=== PATIENT | female | born 1935 | race Caucasian/White ===

== ENCOUNTER → 2016-07-14 | Outpatient (CLI) | payer BC ==
[~2016-07-14] MED LIST: ALPR-412 PO; ASPEC81 PO; BNC/40 PO; CHOL20009 PO; ESTR0.3T PO; FLNIN NAE; LORA10CA2 PO; OMEG1CAP81 PO; PROG100C6 PO; SIMV20TA2 PO
[2016-07-14 10:11] LABS: ALT/SGPT 30 U/L (12-78); AST/SGOT 19 U/L (15-37); BLOOD UREA NITROGEN 19 mg/dl (7-18); BUN/CREATININE RATIO 17.1 (10-20); CARBON DIOXIDE 28 mmol/L (21-32); CHLORIDE 106 mmol/L (98-107); GLUCOSE 123 mg/dl (70-99); POTASSIUM 4.2 mmol/L (3.5-5.1); SODIUM 141 mmol/L (136-145)
[2016-07-14 10:21] LABS: CHOLESTEROL 167 mg/dl (0-200); HDL CHOLESTEROL 55 mg/dl; LDL CHOLESTEROL CALCULATED 84 mg/dl; TRIGLYCERIDES 140 mg/dl (0-150); VERY LOW DENSITY LIPOPROT CALC 28 mg/dl
== END | disposition home or self-care (01) ==
LOC: C.LAB1850 07:08
PROVIDERS: ATTEND Internal Medicine
DX: E78.5 Hyperlipidemia, unspecified (principal); I10 Essential (primary) hypertension; E55.9 Vitamin D deficiency, unspecified; E04.1 Nontoxic single thyroid nodule

== ENCOUNTER → 2017-01-12 | Outpatient (CLI) | payer BC ==
[2017-01-12 10:00] LABS: BLOOD UREA NITROGEN 20 mg/dl (7-18); BUN/CREATININE RATIO 16.3 (10-20); CALCIUM 9.1 mg/dl (8.5-10.1); CARBON DIOXIDE 25 mmol/L (21-32); CHLORIDE 106 mmol/L (98-107); GLUCOSE 137 mg/dl (70-99); POTASSIUM 4.5 mmol/L (3.5-5.1); SODIUM 139 mmol/L (136-145)
== END | disposition home or self-care (01) ==
LOC: C.LAB1850 07:41
PROVIDERS: ATTEND Internal Medicine
DX: R73.9 Hyperglycemia, unspecified (principal)

== ENCOUNTER 2022-05-08 15:54 | Observation (INO) ==
[2022-05-08 16:50] LABS: Basophils # (auto) 0.03 K/uL (0-0.2); Basophils % (auto) 0.3 %; Eosinophils % (auto) 0.9 %; Hematocrit (blood only) 26.7 % (37.0-47.0); Immature Granulocytes # (auto) 0.12 K/uL (0.01-0.20); Immature Granulocytes % (auto) 1.1 %; Lymphocytes # (auto) 0.82 K/uL (1.2-3.4); Lymphocytes % (auto) 7.4 %; Mean Corpuscular Hemoglobin 26.9 pg (25.0-34.0); Mean Corpuscular Hgb Conc 33.7 g/dL (32.0-36.0); Mean Corpuscular Volume 79.7 fL (80.0-100.0); Mean Platelet Volume 10.4 fL (9.4-12.4); Monocytes # (auto) 1.39 K/uL (0.11-0.59); Monocytes % (auto) 12.6 %; Neutrophils # (auto) 8.61 K/uL (1.40-6.50); Neutrophils % (auto) 77.7 %; Platelet Count 304 K/uL (130-400); RDW Coefficient of Variation 14.6 % (11.5-14.5); RDW Standard Deviation 42.6 fL (36.4-46.3); Red Blood Count 3.35 M/uL (4.20-5.40); White Blood Count 11.07 K/ul (4.8-10.8)
[2022-05-08 17:13] LABS: Albumin Globulin Ratio 0.9 (0.9-2); Albumin Level 3.3 gm/dl (3.4-5.0); Bilirubin,Total 4.2 mg/dl (0.2-1.0); Calcium 8.9 mg/dl (8.5-10.1); Creatinine Clr Calc Pharmacy 51.9 ml/min; Est GFR (African American) 79.7 ml/min; Est GFR (Non-African American) 68.7 ml/min; Globulin 3.5 gm/dl (2.5-4.0); Potassium 4.1 mmol/L (3.5-5.1); Total Protein 6.8 gm/dl (6.0-8.3)
[2022-05-08] MEDS ORDERED: PIPERACILLIN/TAZOBACTAM 4.5 GM/120 ML BAG IV ONE (18:30)
[2022-05-08] MEDS ORDERED: CHOLESTYRAMINE LIGHT 4 GM PKT PO STA (18:47)
[2022-05-08] MEDS ORDERED: diphenhydrAMINE 50 MG/ML VIAL IV STA (18:47)
--- NOTE | 2022-05-08 18:47 | Emergency Department Note ---
Impression & Plan Acute cholangitis, Hyperbilirubinemia, Fever ED Provider Note INFORMANT: Patient and daughter ED PROVIDER(S): Joshua Childers DO CHIEF COMPLAINT: Itchiness, jaundice fever PLAN: Disposition: Transfer Condition: Stable Outpatient prescription management: none Referral: [facility] MEDICAL DECISION MAKING: This is a 86-year-old female who presents to the ED with a chief complaint of itchiness and increased jaundice. She first was noticed to be a little more yellow last week according to the family. She has some laboratory test yesterday that showed her bilirubin is 1.2. Her skin became significantly more itchy today. Daughter also reports that she had a fever of 100.3 earlier today. Advil helped. The patient took cholestyramine earlier today for her itchiness. She states that transiently helped. The patient's white blood cell count is 11. It was 9 yesterday. Hemoglobin is relatively stable at 9. Glucose is 288. She does have a history of hyperglycemia. Sodium is 130. Slightly low. She does have a transaminitis with an AST of 80, ALT of 113 and alkaline phosphatase of 422. This is near baseline with exception of the alkaline phosphatase being slightly higher than baseline. Lipase was negative. EKG showed normal sinus rhythm. Bilirubin is 4.2 today. Yesterday was 1.2. I did speak with [facility], Dr. Marion as well as Dr. Buckley from the medicine service. They will accept the patient to the medicine service once a bed is available. They are going to put the patient on a waiting list. They recommend the patient be admitted here until a bed is available there. They also recommended blood cultures and Zosyn IV. I did speak with Dr. Navarrete from the medicine service here. He will consult on the patient for now to assist in care pending transfer. Triage Nursing notes reviewed. Vital Signs: reviewed Prior /Outside records reviewed: Previous labs reviewed Differential diagnosis: Cholangitis, jaundice, electrolyte abnormality, sepsis, infection, other. Diagnostics, as interpreted by me: 12 lead ECG: Normal sinus rhythm rate of 100 with a left bundle branch block. This is chronic compared to an EKG dated 11/09/2021. No ST elevation. No PVCs. Normal QTC. Cardiac Monitoring: none Medical decision rules: none Imaging studies: Chest x-ray: Elevated left hemidiaphragm with atelectasis. Procedures: none. Critical care: none. HPI: See MDM above. PAST MEDICAL HISTORY: See Below PAST SURGICAL HISTORY: See Below SOCIAL HISTORY: See Below HOME MEDICATIONS: See Below ALLERGIES: See Below VITALS: See Below PHYSICAL EXAMINATION: CONSTITUTIONAL/VITAL SIGNS: Reviewed GENERAL: Non-toxic in appearance. INTEGUMENTARY: Warm, dry, and [place]. HEAD: Normocephalic. EYES: without scleral icterus. ENT/OROPHARYNX: clear and moist. RESPIRATORY: No increased work of breathing. Lungs clear. CARDIOVASCULAR: Regular rate. Regular rhythm. GI/ABDOMEN: Soft and nontender. . EXTREMITIES: Normal NEUROLOGICAL: Intact without focal deficits. PSYCHIATRIC: Normal affect. MUSCULOSKELETAL: Normal. TRIAGE NURSING DOCUMENTATION REVIEWED. Past Med/Surg History Medical History (Updated 05/08/22 @ 19:07 by Darnell Navarrete MD) Anxiety disorder Hyperglycemia Hyperlipidemia Hypertension Hypothyroidism Osteoporosis Solitary thyroid nodule Vitamin D deficiency Yellow skin Surgical History (Updated 11/26/21 @ 11:36 by Roberto Davis LPN) H/O dilation and curettage H/O oral surgery S/P ERCP Family History Brother Prostate cancer Mother Myocardial infarction Dementia Sister Epilepsia Denies family history of Ovarian cancer Breast cancer Lung cancer Colorectal cancer Stroke Social History Smoking Status: Never smoker Second Hand Exposure: No; Hx Alcohol Use: No Hx Substance Use: No Preferred Language: Spanish Visual Impairment: No Limitations Hearing Ability: Normal Beliefs That Will Affect Care: None marital status: / Current Living Situation: Alone current occupational status: retired Feels Safe at Home: Yes Childhood Exposure to Second-Hand Smoke: No caffeine: No Dental Care, Regularly: Yes Physical Activity Frequency: 5-6 Times per Week Seatbelt Use: always Sunscreen Use: Yes Allergies Allergies Allergy/AdvReac Type Severity Reaction Status Date / Time sertraline Allergy Unknown UNKNOWN Verified 11/10/21 14:19 Home Meds Home Medications Medication Instructions Recorded Confirmed cholecalciferol (vitamin D3) 50 2,000 units PO DAILY 10/10/18 05/08/22 mcg (2,000 unit) tablet omega-3 acid ethyl esters 1 gram 1 cap PO DAILY 02/19/19 05/08/22 capsule apixaban 5 mg tablet (Eliquis) 5 mg PO BID 05/08/22 05/08/22 capecitabine 500 mg tablet 500 mg PO UD 05/08/22 05/08/22 cholestyramine (with sugar) 4 gram 4 g PO BID 05/08/22 05/08/22 oral powder ondansetron HCl 8 mg tablet 8 mg PO Q8 PRN Nausea 05/08/22 05/08/22 pantoprazole 40 mg tablet,delayed 40 mg PO DAILY 05/08/22 05/08/22 release prochlorperazine maleate 10 mg 10 mg PO Q6 PRN Nausea 05/08/22 05/08/22 tablet simvastatin 40 mg tablet 20 mg PO QPM 05/08/22 05/08/22 Previous Rx's Medication Instructions Recorded olmesartan 40 mg tablet 40 mg PO DAILY #90 tabs 08/14/21 duloxetine 60 mg capsule,delayed 60 mg PO DAILY #90 caps 11/04/21 release levothyroxine 50 mcg tablet 50 mcg PO DAILY #90 tabs 12/16/21 alprazolam 0.25 mg tablet 0.25 mg PO BID PRN anxiety #60 tabs 01/27/22 Results & Data (ED) Vital Signs Vital Signs - 24 hr 05/08/22 16:13 05/08/22 18:22 Temperature 37.0 C Temperature Source Oral Pulse Rate 102 H Pulse Rate [Finger] 86 Pulse Rhythm [Finger] Regular Pulse Strength [Finger] Normal Respiratory Rate 18 20 Respiratory Effort / Characteristics Non-Labored Spontaneous Non-Labored Spontaneous Respiratory Depth Normal Normal Respiratory Pattern Regular Regular Blood Pressure 148/66 H Blood Pressure [Right Arm] 142/58 H Blood Pressure Mean 93 Blood Pressure Mean [Right Arm] 86 Blood Pressure Position Sitting Pulse Oximetry 93 97 Oxygen Delivery Method Room Air Room Air Sepsis Recent Fever Within 48 Hours No Sepsis New/Unexplained Change in Mental Status N/A Sepsis Action Taken by Nursing No Action Required Laboratory Data 05/08/22 16:24 05/08/22 16:24 Lab Results 05/08/22 05/08/22 05/08/22 Range/Units 16:24 16:24 19:03 WBC 11.07 H (4.8-10.8) K/ul RBC 3.35 L (4.20-5.40) M/uL Hgb 9.0 L (12.0-16.0) g/dl Hct 26.7 L (37.0-47.0) % MCV 79.7 L D (80.0-100.0) fL MCH 26.9 (25.0-34.0) pg MCHC 33.7 (32.0-36.0) g/dL RDW Std Deviation 42.6 (36.4-46.3) fL RDW Coeff of Jeevan 14.6 H (11.5-14.5) % Plt Count 304 (130-400) K/uL MPV 10.4 (9.4-12.4) fL Immature Gran % (Auto) 1.1 % Neut % (Auto) 77.7 % Lymph % (Auto) 7.4 % [place] % (Auto) 12.6 % Eos % (Auto) 0.9 % Baso % (Auto) 0.3 % Neut # (Auto) 8.61 H (1.40-6.50) K/uL Lymph # (Auto) 0.82 L (1.2-3.4) K/uL [place] # (Auto) 1.39 H (0.11-0.59) K/uL Eos # (Auto) 0.10 (0-0.50) K/uL Baso # (Auto) 0.03 (0-0.2) K/uL Immature Gran # (Auto) 0.12 (0.01-0.20) K/uL Sodium 130 L (136-145) mmol/L Potassium 4.1 (3.5-5.1) mmol/L Chloride 99 (98-107) mmol/L Carbon Dioxide 24 (21-32) mmol/L Anion Gap 7 (3-11) BUN 15 (6-23) mg/dl Creatinine 0.79 (0.6-1.2) mg/dl Est Cr Clr Drug Dosing 51.9 ml/min Est GFR ( Amer) 79.7 ml/min Est GFR (Non-Af Amer) 68.7 ml/min BUN/Creatinine Ratio 19.0 (10-20) Glucose 288 H (70-99(Fasting)) mg/dl Calcium 8.9 (8.5-10.1) mg/dl Total Bilirubin 4.2 H D (0.2-1.0) mg/dl AST 80 H (13-39) U/L ALT 113 H (7-52) U/L Alkaline Phosphatase 422 H (34-104) U/L Total Protein 6.8 (6.0-8.3) gm/dl Albumin 3.3 L (3.4-5.0) gm/dl Globulin 3.5 (2.5-4.0) gm/dl Albumin/Globulin Ratio 0.9 (0.9-2) Lipase 62 (11-82) U/L SARS-CoV-2, RNA, NAAT NEGATIVE (NEGATIVE) Administered Medications Discontinued Medications Piperacillin Sod/Tazobactam Sod (Zosyn) 4.5 gm in 120 mls @ 240 mls/hr IV NOW ONE Stop: 05/08/22 18:59 Last Infusion: 05/08/22 19:21 Dose: 0 mls/hr Documented By: Admin: 05/08/22 18:44 Dose: 240 mls/hr Documented By: [id number] Discharge Plan Visit Data Chief Complaint: GI Assessment Stated Complaint: STENT POSSIBLY BLOCKED, FEVERISH ED Provider: Joshua Childers Discharge Problem: Acute cholangitis, Hyperbilirubinemia, Fever Forms Stand Alone Forms: My [facility] [facility] Prescriptions Prescriptions: No Action olmesartan 40 mg tablet 40 mg PO DAILY Qty: 90 3RF duloxetine 60 mg capsule,delayed release(DR/EC) 60 mg PO DAILY Qty: 90 3RF levothyroxine 50 mcg tablet 50 mcg PO DAILY Qty: 90 3RF alprazolam 0.25 mg tablet 0.25 mg PO BID PRN (Reason: anxiety) Qty: 60 0RF cholecalciferol (vitamin D3) 2,000 unit tablet 2,000 units PO DAILY omega-3 acid ethyl esters 1 gram capsule 1 cap PO DAILY ondansetron HCl 8 mg tablet 8 mg PO Q8 PRN (Reason: Nausea) prochlorperazine maleate 10 mg tablet 10 mg PO Q6 PRN (Reason: Nausea) pantoprazole 40 mg tablet,delayed release (DR/EC) 40 mg PO DAILY Eliquis 5 mg tablet 5 mg PO BID simvastatin 40 mg tablet 20 mg PO QPM Rx Instructions: 20 mg PO TAKE ONE HALF TABLET EVERY EVENING; capecitabine 500 mg tablet 500 mg PO UD cholestyramine (with sugar) 4 gram Powder 4 g PO BID Rx Instructions: 3 days prescribed today administer w/meal; avoid other meds within 1hr before or 4-6hr after dose Referrals Referrals: Alba Khalil MD [Primary Care Provider] -
--- NOTE | 2022-05-08 18:51 | Hospitalist Consultation ---
Date of Consultation May 08, 2022 Assessment & Plan (1) Acute cholangitis: Secondary to stent duodenal ampulla adenocarcinoma Planning on starting chemotherapy on Tuesday (2) Hypothyroidism: (3) Hypertension: (4) Hyperlipidemia: (5) Anxiety disorder: (6) History of DVT (deep vein thrombosis): Diagnosed 1 week ago. Last took Eliquis at 9:30am. History of Present Illness History of Present Illness Alessia London is an 86 year old female who presents to the ER with . Itching, skin turning yellow. Dr Mark did LFTs on progressive over last week. Abdominal pain- had one day, severity 5/10, last half a day, occurred on Tuesday. Improve after Boost and heating pad. Aching all over today, 100.3 temp 2pm. Took two Advil. Sweating. Tuesday. Talked to Dr Mark and prescribed cholestyramine. Called [facility] and as long as level - Original stent placed in November. May Allergies Allergy/AdvReac Type Severity Reaction Status Date / Time sertraline Allergy Unknown UNKNOWN Verified 11/10/21 14:19 Home Medications Medication Instructions Recorded Confirmed Type cholecalciferol (vitamin D3) 50 2,000 units PO DAILY 10/10/18 05/08/22 History mcg (2,000 unit) tablet omega-3 acid ethyl esters 1 gram 1 cap PO DAILY 02/19/19 05/08/22 History capsule olmesartan 40 mg tablet 40 mg PO DAILY #90 tabs 08/14/21 05/08/22 Rx duloxetine 60 mg capsule,delayed 60 mg PO DAILY #90 caps 11/04/21 05/08/22 Rx release levothyroxine 50 mcg tablet 50 mcg PO DAILY #90 tabs 12/16/21 05/08/22 Rx alprazolam 0.25 mg tablet 0.25 mg PO BID PRN anxiety #60 tabs 01/27/22 05/08/22 Rx apixaban 5 mg tablet (Eliquis) 5 mg PO BID 05/08/22 05/08/22 History capecitabine 500 mg tablet 500 mg PO UD 05/08/22 05/08/22 History cholestyramine (with sugar) 4 gram 4 g PO BID 05/08/22 05/08/22 History oral powder ondansetron HCl 8 mg tablet 8 mg PO Q8 PRN Nausea 05/08/22 05/08/22 History pantoprazole 40 mg tablet,delayed 40 mg PO DAILY 05/08/22 05/08/22 History release prochlorperazine maleate 10 mg 10 mg PO Q6 PRN Nausea 05/08/22 05/08/22 History tablet simvastatin 40 mg tablet 20 mg PO QPM 05/08/22 05/08/22 History Patient History Medical History (Updated 05/08/22 @ 19:07 by Darnell Navarrete MD) Anxiety disorder Hyperglycemia Hyperlipidemia Hypertension Hypothyroidism Osteoporosis Solitary thyroid nodule Vitamin D deficiency Yellow skin Surgical History (Updated 11/26/21 @ 11:36 by Roberto Davis LPN) H/O dilation and curettage H/O oral surgery S/P ERCP Family History Brother Prostate cancer Mother Myocardial infarction Dementia Sister Epilepsia Denies family history of Ovarian cancer Breast cancer Lung cancer Colorectal cancer Stroke Social History Smoking Status: Never smoker Second Hand Exposure: No; Hx Alcohol Use: No Hx Substance Use: No Preferred Language: Egyptian Visual Impairment: No Limitations Hearing Ability: Normal Beliefs That Will Affect Care: None marital status: / Current Living Situation: Alone current occupational status: retired Feels Safe at Home: Yes Childhood Exposure to Second-Hand Smoke: No caffeine: No Dental Care, Regularly: Yes Physical Activity Frequency: 5-6 Times per Week Seatbelt Use: always Sunscreen Use: Yes Results & Data Results & Data ([facility]) Vital Signs (Past 12 Hours) Vital Signs Temp Pulse Pulse Resp BP BP Pulse Ox 05/08/22 18:22 86 20 142/58 H 97 05/08/22 16:13 37.0 C 102 H 18 148/66 H 93 O2 Del Method 05/08/22 18:22 Room Air 05/08/22 16:13 Room Air PG Care Time/CCT Total # of Minutes Spent Total Time Spent with Patient: Total time spent is greater than 50% in coordination of care (as documented) at patient's floor/unit and/or counseling patient: Coding Diagnoses Acute cholangitis K83.09 Hypothyroidism E03.9 Hypertension I10 Hyperlipidemia E78.5 Anxiety disorder F41.9 History of DVT (deep vein thrombosis) Z86.181
--- NOTE | 2022-05-08 19:42 | XRay Report ---
XR chest 1V portable HISTORY: jaundice COMPARISON: PET CT 05/05/2022. FINDINGS: No pneumothorax. No pleural effusions. Left basilar linear densities favor subsegmental ate lectasis. Otherwise, the lungs are clear. The cardiac silhouette is borderline enlarged. No evidence for pulmonary edema. IMPRESSION: No acute process. ACT 112: Negative or not required by law. Electronically signed by: Fernando Larios M.D. 05/08/2022 7:41 PM
--- NOTE | 2022-05-08 20:11 | History & Physical Report ---
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 No need to repeat. Continue levothyroxine 50 mcg PO daily (4) Hypertension: Plan: Continue olmesartan 40 mg p.o. daily (5) Hyperlipidemia: Plan: Continue simvastatin p.o. daily (6) Anxiety disorder: Plan: Continue Xanax 0.25 mg p.o. twice daily Continue duloxetine 60 mg p.o. daily (7) History of DVT (deep vein thrombosis): Plan: Diagnosed 1 week ago. Last took Eliquis at 9:30am. 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 She reports progressive symptoms of itching and yellowing of skin over the last week. Yesterday she had half a day of abdominal pain, severity 5/10 at worse, improved after she drank a boost and used a heating pad. Given symptoms repeat [facility] with bilirubin 1.2, AST 88, ALT 119. She was advised to call [facility] gastro[facility]ology and advised the would not perform ERCP until her bilirubin was greater than 1.5. Today she was aching all over and had a temperature of 100.3 degrees Farenheit therefore her daughter convinced her to come to the ER. In the ER bilirubin now elevated to 4.2. Her case was discussed with [facility] by the ER provider and she has been accepted for transfer but no bed is currently available therefore recommended admission under medicine for medical care here until a bed becomes available. Allergies Allergy/AdvReac Type Severity Reaction Status Date / Time sertraline Allergy Unknown UNKNOWN Verified 11/10/21 14:19 Home Medications Medication Instructions Recorded Confirmed Type cholecalciferol (vitamin D3) 50 2,000 units PO DAILY 10/10/18 05/08/22 History mcg (2,000 unit) tablet omega-3 acid ethyl esters 1 gram 1 cap PO DAILY 02/19/19 05/08/22 History capsule olmesartan 40 mg tablet 40 mg PO DAILY #90 tabs 08/14/21 05/08/22 Rx duloxetine 60 mg capsule,delayed 60 mg PO DAILY #90 caps 11/04/21 05/08/22 Rx release levothyroxine 50 mcg tablet 50 mcg PO DAILY #90 tabs 12/16/21 05/08/22 Rx alprazolam 0.25 mg tablet 0.25 mg PO BID PRN anxiety #60 tabs 01/27/22 05/08/22 Rx apixaban 5 mg tablet (Eliquis) 5 mg PO BID 05/08/22 05/08/22 History capecitabine 500 mg tablet 500 mg PO UD 05/08/22 05/08/22 History cholestyramine (with sugar) 4 gram 4 g PO BID 05/08/22 05/08/22 History oral powder ondansetron HCl 8 mg tablet 8 mg PO Q8 PRN Nausea 05/08/22 05/08/22 History pantoprazole 40 mg tablet,delayed 40 mg PO DAILY 05/08/22 05/08/22 History release prochlorperazine maleate 10 mg 10 mg PO Q6 PRN Nausea 05/08/22 05/08/22 History tablet simvastatin 40 mg tablet 20 mg PO QPM 05/08/22 05/08/22 History Past Med/Surg History Medical History (Updated 05/09/22 @ 02:05 by Darnell Navarrete MD) Anxiety disorder Hyperglycemia Hyperlipidemia Hypertension Hypothyroidism Osteoporosis Solitary thyroid nodule Vitamin D deficiency Yellow skin Surgical History (Updated 11/26/21 @ 11:36 by Roberto Davis LPN) H/O dilation and curettage H/O oral surgery S/P ERCP Family History Brother Prostate cancer Mother Myocardial infarction Dementia Sister Epilepsia Denies family history of Ovarian cancer Breast cancer Lung cancer Colorectal cancer Stroke Social History Smoking Status: Never smoker Second Hand Exposure: No; Hx Alcohol Use: No Hx Substance Use: No Preferred Language: Cymro Communication Ability: Effective Visual Impairment: No Limitations Hearing Ability: Normal Gift Packer Required: No Beliefs That Will Affect Care: None marital status: / Current Living Situation: Alone current occupational status: retired Other Information That Helps Us Care for You: No Feels Safe at Home: Yes Safety Concerns: Feels Safe At This Time Childhood Exposure to Second-Hand Smoke: No caffeine: No Dental Care, Regularly: Yes Physical Activity Frequency: 5-6 Times per Week Seatbelt Use: always Sunscreen Use: Yes Assistive Devices: Denture - Upper, Denture - Lower, Hearing Aid - Left and Hearing Aid - Right Review of Systems Review of Systems: All systems reviewed & are unremarkable except as noted in HPI & below Physical Exam Constitutional: well developed and well nourished; no acute distress Eyes: sclerae not anicteric ENMT: external ear and nose normal, oropharynx normal Neck: trachea midline, no thyromegaly Respiratory: normal respiratory effort, lungs clear to auscultation Cardiovascular: Rate/Rhythm: regular rate and regular rhythm Heart Sounds: no murmur Extremities: normal capillary refill and + pedal edema (1+ b/l equal edema); no calf tenderness Gastrointestinal (Abdomen): normal bowel sounds, soft, nontender, no hepatosplenomegaly Musculoskeletal: no cyanosis or clubbing, extremities motor strength 5/5 Skin: + jaundice Neurologic: moves all extremities and awake; not confused Psychiatric: A+Ox3, euthymic affect Genitourinary: no CVA tenderness Results & Data Results & Data ([facility]) Vital Signs (Past 12 Hours) Vital Signs Temp Pulse Pulse Resp BP BP Pulse Ox 05/08/22 19:30 86 16 153/80 H 92 05/08/22 18:22 86 20 142/58 H 97 05/08/22 16:13 37.0 C 102 H 18 148/66 H 93 O2 Del Method 05/08/22 19:30 Room Air 05/08/22 18:22 Room Air 05/08/22 16:13 Room Air Laboratory Results Abnormal lab results 05/08/22 05/08/22 Range/Units 16:24 16:24 WBC 11.07 H (4.8-10.8) K/ul RBC 3.35 L (4.20-5.40) M/uL Hgb 9.0 L (12.0-16.0) g/dl Hct 26.7 L (37.0-47.0) % MCV 79.7 L D (80.0-100.0) fL RDW Coeff of Jeevan 14.6 H (11.5-14.5) % Neut # (Auto) 8.61 H (1.40-6.50) K/uL Lymph # (Auto) 0.82 L (1.2-3.4) K/uL [place] # (Auto) 1.39 H (0.11-0.59) K/uL Sodium 130 L (136-145) mmol/L Glucose 288 H (70-99(Fasting)) mg/dl Total Bilirubin 4.2 H D (0.2-1.0) mg/dl AST 80 H (13-39) U/L ALT 113 H (7-52) U/L Alkaline Phosphatase 422 H (34-104) U/L Albumin 3.3 L (3.4-5.0) gm/dl Medications Administered ER Medications Given: Zosyn 4.5 g IV Cholestyramine 4 g PO Diphenhydramine 25 mg IV ECG Indication: abdominal pain Rate (beats per minute): 100 Rhythm: normal sinus Findings: + LBBB Comparison ECG Date: from (November 09, 2020) Change: the following changes noted (TWI less evident in lateral leads) Code Status & VTE Plan Code Status Full VTE Prophylaxis Plan VTE Prophylaxis will be ordered: Yes PG Care Time/CCT Total # of Minutes Spent Total Time Spent with Patient: Total time spent is greater than 50% in coordination of care (as documented) at patient's floor/unit and/or counseling patient: Coding Level of Care Code 28093 INT INP/OBS CARE 3/75MIN Diagnoses Acute cholangitis K83.09 Metastatic adenocarcinoma C79.9 Hypothyroidism E03.9 Hypertension I10 Hyperlipidemia E78.5 Anxiety disorder F41.9 History of DVT (deep vein thrombosis) Z86.718
[2022-05-08] MEDS ORDERED: ONDANSETRON INJ 2 MG/ML 2 ML VIAL IV PRN (21:04)
[2022-05-08] MEDS ORDERED: SIMVASTATIN 20 MG TAB PO SCH (21:04)
[2022-05-08] MEDS: ENOXAPARIN 80 MG/0.8 ML SYR SQ SCH (22:40)
[2022-05-08] MEDS: CHOLESTYRAMINE LIGHT 4 GM PKT PO SCH (22:40)
[2022-05-08] MEDS: ALPRAZolam 0.25 MG TABLET PO SCH (22:40)
[2022-05-08] MEDS: PIPERACILLIN/TAZOBACTAM 3.375 GM in DEXTROSE 5% 100 ML IV SCH (22:41)
[2022-05-09] MEDS: SODIUM CHLORIDE 0.9% 1000ML 1,000 ML IV SCH ×2 (03:07→10:30)
[2022-05-09] MEDS: PIPERACILLIN/TAZOBACTAM 3.375 GM in DEXTROSE 5% 100 ML IV SCH ×2 (05:51→13:39)
[2022-05-09] MEDS ORDERED: LEVOTHYROXINE SODIUM 50 MCG TABLET PO SCH (06:30)
[2022-05-09 07:23] LABS: Basophils # (auto) 0.05 K/uL (0-0.2); Basophils % (auto) 0.6 %; Eosinophils # (auto) 0.76 K/uL (0-0.50); Eosinophils % (auto) 8.4 %; Hematocrit (blood only) 25.6 % (37.0-47.0); Hemoglobin 8.4 g/dl (12.0-16.0); Immature Granulocytes # (auto) 0.06 K/uL (0.01-0.20); Immature Granulocytes % (auto) 0.7 %; Lymphocytes # (auto) 2.09 K/uL (1.2-3.4); Lymphocytes % (auto) 23.2 %; Mean Corpuscular Hemoglobin 26.8 pg (25.0-34.0); Mean Corpuscular Hgb Conc 32.8 g/dL (32.0-36.0); Mean Corpuscular Volume 81.5 fL (80.0-100.0); Mean Platelet Volume 10.3 fL (9.4-12.4); Monocytes # (auto) 1.27 K/uL (0.11-0.59); Monocytes % (auto) 14.1 %; Neutrophils # (auto) 4.77 K/uL (1.40-6.50); Platelet Count 318 K/uL (130-400); RDW Coefficient of Variation 14.6 % (11.5-14.5); RDW Standard Deviation 43.1 fL (36.4-46.3); Red Blood Count 3.14 M/uL (4.20-5.40)
--- NOTE | 2022-05-09 07:33 | Electrocardiogram Report ---
Test Reason : Blood Pressure : / mmHG Vent. Rate : 100 BPM Atrial Rate : 100 BPM P-R Int : 132 ms QRS Dur : 126 ms QT Int : 368 ms P-R-T Axes : 042 009 130 degrees QTc Int : 474 ms Normal sinus rhythm Left bundle branch block Abnormal ECG When compared with ECG of 09-NOV-2020 15:22, T wave inversion less evident in Lateral leads Confirmed by Demetrius Peterson ([id number]) on 05/09/2022 7:33:15 AM Referred By: Antionette Mark Confirmed By:Jose Daniel Peterson
[2022-05-09 08:19] LABS: Albumin Globulin Ratio 0.9 (0.9-2); BUN Creatinine Ratio 16.3 (10-20); Bilirubin,Total 3.9 mg/dl (0.2-1.0); Calcium 9.1 mg/dl (8.5-10.1); Creatinine Clr Calc Pharmacy 51.3 ml/min; Est GFR (African American) 78.5 ml/min; Est GFR (Non-African American) 67.7 ml/min; Globulin 3.3 gm/dl (2.5-4.0); Potassium 4.1 mmol/L (3.5-5.1); Total Protein 6.3 gm/dl (6.0-8.3)
[2022-05-09] MEDS: ALPRAZolam 0.25 MG TABLET PO SCH (08:46)
[2022-05-09] MEDS: ENOXAPARIN 80 MG/0.8 ML SYR SQ SCH (08:52)
[2022-05-09] MEDS ORDERED: OLMESARTAN MEDOXOMIL 40 MG TAB PO SCH (09:00)
[2022-05-09] MEDS ORDERED: DULoxetine HCL 60 MG CAP PO SCH (09:00)
[2022-05-09] MEDS: CHOLESTYRAMINE LIGHT 4 GM PKT PO SCH (10:27)
[2022-05-09] MEDS ORDERED: PANTOprazole 40 MG in SYRINGE 0 ML IV SCH (11:00)
--- NOTE | 2022-05-09 13:43 | Communication Note ---
Date of Service: May 09, 2022 Date of Service: May 09, 2022 I briefly saw Alessia London today at her bedside. Her daughter was present as well. She has a history of an Ampullary cancer and has previously undergone an ERCP with biliary stent placement in November. She has also undergone a cholecystectomy since that time. She states that she was to have a biliary stent removal/exchange at [facility] in May as this is where all of her previous procedures have been done, however, she developed fever and pruritus and presented to the ER. She was noted to have elevated LFT's and probable cholangitis. She was admitted and received IV Abx, and is feeling much better. She has been accepted in transfer to [facility], but is currently awaiting a bed. She does not have any emergent need for ERCP at this time. I discussed with the hospitalist team, and formal consultation was cancelled. I am available if any further questions arise. Thanks.
--- NOTE | 2022-05-09 13:51 | Discharge Summary ---
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 She reports progressive symptoms of itching and yellowing of skin over the last week. Yesterday she had half a day of abdominal pain, severity 5/10 at worse, improved after she drank a boost and used a heating pad. Given symptoms repeat [facility] with bilirubin 1.2, AST 88, ALT 119. She was advised to call [facility] and advised the would not perform ERCP until her bilirubin was greater than 1.5. Today she was aching all over and had a temperature of 100.3 degrees Farenheit therefore her daughter convinced her to come to the ER. In the ER bilirubin now elevated to 4.2. Her case was discussed with [facility] by the ER provider and she has been accepted for transfer but no bed is currently available therefore recommended admission under medicine for medical care here until a bed becomes available. Admission Exam Per Admitting Provider Constitutional: well developed and well nourished; no acute distress Eyes: sclerae not anicteric ENMT: external ear and nose normal, oropharynx normal Neck: trachea midline, no thyromegaly Respiratory: normal respiratory effort, lungs clear to auscultation Cardiovascular: Rate/Rhythm: regular rate and regular rhythm Heart Sounds: no murmur Extremities: normal capillary refill and + pedal edema (1+ b/l equal edema); no calf tenderness Gastrointestinal (Abdomen): normal bowel sounds, soft, nontender, no hepatosplenomegaly Musculoskeletal: no cyanosis or clubbing, extremities motor strength 5/5 Skin: + jaundice Neurologic: moves all extremities and awake; not confused Psychiatric: A+Ox3, euthymic affect Genitourinary: no CVA tenderness Principal Diagnosis cholangitis Discharge Exam Constitutional well developed, well nourished, + ill appearing and + well hydrated Eyes icterus Neck trachea midline, no thyromegaly Respiratory normal respiratory effort, lungs clear to auscultation Cardiovascular RRR, no murmur, no edema Extremities: no calf tenderness and no edema Gastrointestinal (Abdomen) normal bowel sounds, soft, nontender, no hepatosplenomegaly Percussion/Palpation: abdomen soft; no guarding and abdomen not rigid midline healed surgical scar Skin + scar; no rashes Jaundice Neurologic patellar DTR's 2+ bilat, sensation intact and PERRL, EOMI, accommodation nl, no face palsy, no dysarthria Psychiatric A+Ox3, euthymic affect Discharge Data Allergies Allergy/AdvReac Type Severity Reaction Status Date / Time sertraline Allergy Unknown UNKNOWN Verified 11/10/21 14:19 Consultations 05/08/22 18:48 Consult Internal Medicine Stat Ordered Studies Source Blood Procedure/Result Aerobic Blood Culture - Pending Anaerobic Blood Culture - Pending 05/08/22 19:21 Micro Blood Specimen Received Source Blood Procedure/Result Aerobic Blood Culture - Pending Anaerobic Blood Culture - Pending 11/13/21 18:00 Micro Urine Specimen Complete Source Urine,Clean Catch Procedure/Result Urine Culture - Final More than three types of organisms present, all high counts mixed probable skin cale - No further identifications or sensitivities to follow. XR chest 1V portable HISTORY: jaundice COMPARISON: PET CT 05/05/2022. FINDINGS: No pneumothorax. No pleural effusions. Left basilar linear densities favor subsegmental atelectasis. Otherwise, the lungs are clear. The cardiac silhouette is borderline enlarged. No evidence for pulmonary edema. IMPRESSION: No acute process. 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 S/P EUS/ERCP and stent placement 11/16/21. S/P aborted [facility] due to liver mets and open cholecystectomy in 11/2021. Was to start Chemotherapy tomorrow. But presented to [facility] ER yesterday with complaints of fever and jaundice. Patient denies any abdominal pain, nausea or vomiting. She has had approximately 25# weight loss over the past 6 months. - Secondary to stent occlusion placed in November for duodenal ampulla adenocarcinoma, pt is s/p cholecystectomy - Blood cultures pending - Was started on IV Zosyn (had 3 doses) - Consult gastroenterology if patient deteriorates here however she is a planned transfer to [place] once bed is available for ERCP - Bed became available and cancelled GI consult here. - Patient has been NPO since midnight - Switch Eliquis for Lovenox due to need for ERCP (Was scheduled to start chemotherapy on Tuesday) (2) Metastatic adenocarcinoma: - As above (3) Hypothyroidism: - TSH WNL in October. No need to repeat. - Continue levothyroxine 50 mcg PO daily (4) Hypertension: - Continue Olmesartan 40 mg daily (5) Hyperlipidemia: - Continue Simvastatin 20mg daily (6) Anxiety disorder: - Continue Xanax 0.25 mg p.o. twice daily - Continue duloxetine 60 mg p.o. daily (7) History of DVT (deep vein thrombosis): - Diagnosed 1 week ago. - Last took Eliquis at 9:30am 05/08/22 - Currently on Lovenox 80mg SQ BID (8) Cholestatic pruritus: - Gave dose of Benedryl 25mg last night and x 1 today prior to transport - Rx Cholestyramine 4gm BID (home medication) Plan Transfer to [place] for ERCP Accepted by medical service Dr Buckley and GI Dr Marino Total Time Total Time Spent Total Time Spent (In Minutes): 35 Discharge Plan Discharge Items Patient Disposition: Transfer Acute Care Hospital Reason For Visit: ACUTE CHOLANGITIS Discharge Diagnosis: Acute cholangitis Condition on Discharge: Fair Activity: As commented below Activity Comment: Transfer to tertiary center for ERCP Lifting: None Weightbearing: Full weightbearing Non-emergency contact: Gis Technician Call non-emergency contact if: you have any medication questions Follow-up/Referrals: Alba Khalil MD [Primary Care Provider] - Diet: Nothing by Mouth Addtl Attending Provider Instructions: You were admitted with acute cholangitis and were started in IVFs and IV Zosyn. You remained stable and labs improved. You are known to [facility] and were admitted to wait for a bed at [place] to have an ERCP. Pending Studies at Discharge: No Stand-Alone Forms: My [facility] Skilled Items Patient informed of condition?: Yes DNR: No Discharge Level of Care: Other Communicable Disease: No Discharge Prognosis: Stable Lines: Saline Lock Urinary Catheter: No Medications and DC Order Prescriptions: Continued olmesartan 40 mg tablet 40 mg PO DAILY Qty: 90 3RF duloxetine 60 mg capsule,delayed release(DR/EC) 60 mg PO DAILY Qty: 90 3RF levothyroxine 50 mcg tablet 50 mcg PO DAILY Qty: 90 3RF alprazolam 0.25 mg tablet 0.25 mg PO BID PRN (Reason: anxiety) Qty: 60 0RF cholecalciferol (vitamin D3) 2,000 unit tablet 2,000 units PO DAILY omega-3 acid ethyl esters 1 gram capsule 1 cap PO DAILY ondansetron HCl 8 mg tablet 8 mg PO Q8 PRN (Reason: Nausea) prochlorperazine maleate 10 mg tablet 10 mg PO Q6 PRN (Reason: Nausea) pantoprazole 40 mg tablet,delayed release (DR/EC) 40 mg PO DAILY Eliquis 5 mg tablet 5 mg PO BID simvastatin 40 mg tablet 20 mg PO QPM Rx Instructions: 20 mg PO TAKE ONE HALF TABLET EVERY EVENING; capecitabine 500 mg tablet 500 mg PO UD cholestyramine (with sugar) 4 gram Powder 4 g PO BID Rx Instructions: 3 days prescribed today administer w/meal; avoid other meds within 1hr before or 4-6hr after dose Discharge Orders: Discharge Order (Routine); Ordered 05/09/22 Ordered By: Alee Zuñiag Admission Data Admit Date/Time: 05/08/22 19:26 Attending Provider: Abhijeet Klein Admit Provider: Darnell Navarrete Primary Care Provider: Alba Khalil Other Providers: Darnell Navarrete Coding Level of Care Code HOSP INP/OBS DISCH >30 MIN Diagnoses Acute cholangitis K83.09 Metastatic adenocarcinoma C79.9 Hypothyroidism E03.9 Hypertension I10 Hyperlipidemia E78.5 Anxiety disorder F41.9 History of DVT (deep vein thrombosis) Z86.718 Cholestatic pruritus L29.8
[2022-05-09] MEDS ORDERED: diphenhydrAMINE Capsule 25 MG CAP PO ONE (13:52)
== END 2022-05-09 15:37 | disposition short-term general hospital (02) ==
LOC: ED 15:54 → INTOOBSV 19:26 → 3W 19:26 → SUATTDRO 19:26 → 3W 20:17